=== PATIENT | female | born 2000 | race African-American/Black ===

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

== ENCOUNTER 2021-03-05 15:10 | Emergency (ER) | payer MEDICAID ==
[~2021-03-05] VITALS: Ht 162.6 cm; Wt 57.0 kg
[2021-03-05 15:25] VITALS: BP 140/87
[2021-03-05 16:46] LABS: CLARITY URINE CLEAR (CLEAR); COLOR URINE YELLOW (YELLOW); KETONES URINE NEGATIVE (NEGATIVE); LEUKOCYTE ESTERASE URINE 3+ (NEGATIVE); NITRITE URINE NEGATIVE (NEGATIVE); OCCULT BLOOD URINE NEGATIVE (NEGATIVE); PH URINE 6.5 (4.5-8.0); PROTEIN URINE NEGATIVE (NEGATIVE); SPECIFIC GRAVITY URINE 1.009 (1.005-1.030); UROBILINOGEN URINE 0.2 E.U./dL (0.2-1.0)
[2021-03-05] MEDS ORDERED: NITR-87 MT (17:26)
[2021-03-05] MEDS ORDERED: METR500T MT (17:26)
== END 2021-03-05 18:46 | disposition left against medical advice (07) ==
LOC: ER 15:16
DX: N30.30 Trigonitis without hematuria (principal)
CPT/HCPCS: 81003; 81025; 82962; 99283